=== PATIENT | female | born 1960 | race Caucasian/White ===

== ENCOUNTER 2022-01-06 14:02 | Outpatient (CLI) | payer MEDICAID, SELFPAY ==
--- NOTE | 2022-01-06 14:05 | CT_ITS ---
WS: [id number] LDCT LUNG CANCER SCREENING HISTORY: NICOTINE Dependence, cigarettes TECHNIQUE: Axial imaging performed from the apices to 1 cm below the costophrenic angles. Coronal and sagittal reformats are submitted with axial MIP series. All CT scans at [facility] use at least one of these dose optimization techniques: automated exposure control; mA and/or kV adjustment per patient size (includes targeted exams where dose is matched to clinical indication); or iterativ e reconstruction. DLP: 87.90 mGy.cm DIvol: Mean CTDIvol: 1.60 (mGy) COMPARISON: None available. Diagnostic quality: Satisfactory Lung Nodules: Numerous bilateral calcified granulomata. There is a single 7 mm pleural nodule in the posterior RIGHT lower lobe. Lungs: Mild pulmonary hyperinflation. No endobronchial lesion. Heart: Mild enlargement of the heart. Increased intra-atrial fat. May be a small lipoma. Other findings: Extensive calcified lymph nodes in the sravan and paratracheal region. Atherosclerosis aorta. Mild enlargement of the pulmonary artery. Hepatic steatosis. CT/CT lung screening [id number] IMPRESSION: LUNG-RADS: 4A-Probably Suspicious FOLLOW UP: 3 Month LDCT OTHER FINDINGS (S MODIFIER): None.
== END 2022-01-06 14:03 | disposition home or self-care (01) ==
LOC: RAD 14:04
PROVIDERS: Visit Provider Registered Nurse
DX: Z13.83 Encounter for screening for respiratory disorder NEC (principal)
CPT/HCPCS: 71271

== ENCOUNTER → 2022-03-06 12:55 | Outpatient (BNVA) | payer MEDICAID, SELFPAY | PROVIDERS: Visit Provider Internal Medicine Cardiovascular Disease | DX: I51.7 Cardiomegaly (principal); I25.10 Atherosclerotic heart disease of native coronary artery without angina pectoris; I25.84 Coronary atherosclerosis due to calcified coronary lesion; F17.210 Nicotine dependence, cigarettes, uncomplicated; Z86.73 Personal history of transient ischemic attack (TIA), and cerebral infarction without residual deficits | CPT/HCPCS: 93005; 99204; 99205 ==

== ENCOUNTER 2022-05-08 12:06 | Outpatient (CLI) | payer MEDICAID, SELFPAY ==
--- NOTE | 2022-05-08 13:45 | USCV_ITS ---
Jihan Dominguez Age: 62 Gender: F : 1960 Exam Date: 05/08/2022 13:47 Ordering Phys: Eda Fitzgerald MD ([email or web address]) Technologist: RONAN [place] [facility] [place]: SOB, cardiomegaly BP: 158 / 88 HR: 77 Rhythm: Sinus Technical Quality: difficult MEASUREMENTS (Male / Female) Normal Values 2D ECHO LV Diastolic Diameter PLAX 3.9 cm 4.2 - 5.9 / 3.9 - 5.3 cm LV Systolic Diameter PLAX 2.5 cm IVS Diastolic Thickness 1.4 cm 0.6 - 1.0 / 0.6 - 0.9 cm IVS Systolic Thickness 1.8 cm LVPW Diastolic Thickness 1.2 cm 0.6 - 1.0 / 0.6 - 0.9 cm LVPW Systolic Thickness 1.6 cm LVOT Diameter 2.0 cm LV Ejection Fraction 2D Teich 67.1 % LV Ejection Fraction MOD 2C 60.2 % LV Ejection Fraction 2C AL 60.9 % LA Diameter 3.4 cm RA Width 2.8 cm RA Height 4.0 cm Aorta at Sinotubular Diameter 2.4 cm M-MODE MV E Point Septal Separation 0.6 cm DOPPLER AV Peak Velocity 103.0 cm/s LVOT Peak Velocity 73.0 cm/s AV Area Cont Eq vti 2.5 cm squared AV Area Cont Eq pk 2.3 cm squared MV Peak Velocity 126.0 cm/s MV Area PHT 3.3 cm squared Mitral E to A Ratio 1.0 MV E' Velocity 61.0 cm/s Mitral E to MV E' Ratio 12.0 Mitral E to LV E' Lateral Ratio 16.2 Mitral E to LV E' Septal Ratio 9.5 TR Peak Velocity 257.8 cm/s TR Peak Gradient 26.6 mmHg Right Atrial Pressure 8.0 mmHg Pulmonary Artery Systolic Pressu 34.6 mmHg PV Peak Velocity 100.0 cm/s FINDINGS Left Ventricle Normal left ventricular size and systolic function, EF 66 %. Mild left ventricular hypertrophy. No regional wall motion abnormalities. Right Ventricle The right ventricle is normal in size and function. Right Atrium The right atrium is normal in size. Left Atrium Mildly increased left atrial size. Mitral Valve Mild mitral annular calcification. Mild mitral valve regurgitation. Aortic Valve Thickened aortic valve. Trace aortic valve regurgitation. Tricuspid Valve Mild tricuspid valve regurgitation. Pulmonic Valve Pulmonic valve not well visualized. Pericardium Normal pericardium without effusion. Aorta Normal aortic annulus size. IVC Normal inferior vena cava. CONCLUSIONS Normal left ventricular size and systolic function, EF 66 %. Mild left ventricular hypertrophy. No regional wall motion abnormalities. Mild mitral annular calcification. Mild mitral valve regurgitation. Mildly increased left atrial size. Thickened aortic valve. Trace aortic valve regurgitation. Mild tricuspid valve regurgitation. Estimated pulmonary artery peak systolic pressure 35 mmHg There is no pericardial effusion. There are no intracardiac masses. No similar previous studies are available for comparison Dr Eda Fitzgerald MD [facility] (Electronically Signed) Final Date: 09 May 2022 11:25 S
== END 2022-05-08 12:07 | disposition home or self-care (01) ==
LOC: RAD 12:07
PROVIDERS: PCP Family Medicine; Visit Provider Internal Medicine Cardiovascular Disease
DX: R06.02 Shortness of breath (principal); I08.3 Combined rheumatic disorders of mitral, aortic and tricuspid valves
CPT/HCPCS: 93306

== ENCOUNTER 2022-06-09 07:16 | Outpatient (CLI) | payer MEDICAID, SELFPAY ==
[2022-06-09 07:46] VITALS: BMI 38.1
--- NOTE | 2022-06-09 07:48 | NMCV_ITS ---
NM crystal perf SPECT r/s* [id number] Jihan Dominguez Age: 62 Gender: F : 1960 Exam Date: 06/09/2022 07:48 Ordering Phys: Eda Fitzgerald MD ([email or web address]) Technologist: BETH Leos Exam Location: [facility] Indications: CORONARY ANGIOPLASTY STATUS STRESS TEST Please see separate stress test report in [facility] for full findings IMAGE PROTOCOL Rest/Stress 1 Exercise Day Radiopharmaceutical Dose (mCi) Administration Site Administered by Rest: Tc-99m 10.8 IV BETH Velasquez Sestamibi Stress:Tc-99m 32.6 IV BETH Velasquez Sestamibi Rest: 09-Jun-2022 60 Discovery 630 Stress: 09-Jun-2022 15 Discovery 630 Radiopharmaceutical was injected at 85 % maximum heart rate. Images obtained in supine and prone position. SPECT RESULTS Technical Quality: Excellent Raw Data Analysis: Normal Image Corrections: No attenuation or motion correction applied Summed Stress Score: 0 Summed Rest Score: 2 Summed Difference Score: 0 PERFUSION FINDINGS Small area of slightly decreased tracer uptake was noted in the apical anterior region, in the supine position. Fairly uniform myocardial tracer uptake was noted in the prone position. No S3 reversibility was noted. FUNCTIONAL RESULTS (calculated via Gated SPECT) Stress Image LV EF (%): 82 Stress EDV (mL):60 TID: 0.74 Stress ESV (mL):11 FUNCTIONAL FINDINGS: Segmental wall motion analysis revealing no gross wall motion abnormalities IMPRESSIONS 1. Myocardial perfusion imaging revealing small area of inconsistent defect in the apical anterior region, most likely represent attenuation artifact. 2. Normal LV ejection fraction of 83%. 3. Segmental wall motion analysis revealing no gross wall motion abnormalities. 4. Normal LV volume Low probability for coronary ischemia, based on the above findings Dr Eda Fitzgerald MD [facility] (Electronically Signed) Final Date: 09 June 2022 13:33 S
--- NOTE | 2022-06-09 07:48 | ECG_ITS ---
[facility] Test Date: 2022-06-09 Pat Name: Jihan Dominguez Department: Room: Gender: Female Manager Project Management: : 1960 Requested By: dEa Fitzgerald Order Number: [id number] Flaquita MD: Eda Fitzgerald M.D. Interpretive Statements NAME OF STUDY: EXERCISE SESTAMIBI STRESS TEST INDICATION: CHEST TIGHTNESS/SOB PROCEDURE: The baseline electrocardiogram showed normal sinus rhythm with poor R wave progression. Nonspecific T wave changes in the inferior leads.. At the baseline, the patient's blood pressure was 160/74 mm Hg with a heart rate of 90/min. The patient exercised for 4 minutes and 46 seconds on a standard Nelson protocol. Patient attained a maximum heart rate of 149 beats per minute(94% of the maximum predicted heart rate) with a blood pressure at the peak exercise of 195/91 mm Hg. The EKG at the peak exercise revealed no significant changes. Patient did not have any chest pain or any significant arrhythmis with the exercise Sestamibi was injected 1 minute prior to the peak exercise During the recovery phase, there were no new changes. Blood pressure at the end of the recovery phase was 167/79 mm Hg with a heart rate of 95 per minute. CONCLUSION: 1. No significant EKG changes with the treadmill exercise 2. No exercise-induced chest pain or cardiac arrhythmia 3. Impaired exercise tolerance, attained a maximum of 7.0 METs 4. Sestamibi/Sestamibi perfusion results pending; see separate report. Electronically Signed On 06-14-2022 17:18:52 CDT by Eda Fitzgerald M.D. [id number]
[2022-06-09 10:33] VITALS: BP 167/79; PULSE 96
== END 2022-06-09 07:17 | disposition home or self-care (01) ==
LOC: CDL 07:19
PROVIDERS: PCP Family Medicine; Visit Provider Internal Medicine Cardiovascular Disease
DX: R07.89 Other chest pain (principal); R06.02 Shortness of breath; Z98.61 Coronary angioplasty status; R94.39 Abnormal result of other cardiovascular function study
CPT/HCPCS: 78452; 93017; A9500

== ENCOUNTER → 2022-06-10 14:23 | Outpatient (BNVA) | payer MEDICAID, SELFPAY | PROVIDERS: PCP Family Medicine; Visit Provider Nurse Practitioner Family | DX: R07.89 Other chest pain (principal); I10 Essential (primary) hypertension; F17.200 Nicotine dependence, unspecified, uncomplicated | CPT/HCPCS: 99213 ==

== ENCOUNTER 2022-09-22 15:09 | Outpatient (CLI) | payer MEDICAID, SELFPAY ==
--- NOTE | 2022-09-22 15:35 | MM_ITS ---
WS: [id number] BILATERAL 3D TOMOSYNTHESIS DIGITAL SCREENING MAMMOGRAPHY WITH CAD CLINICAL INFORMATION: SCREENING HISTORY: Screening mammogram. No current complaints. COMPARISON: July 23, 2021 TECHNIQUE: Bilateral CC and MLO views. FINDINGS: Scattered fibroglandular densities bilaterally. No suspicious focal mass, asymmetry, calcifications, or architectural distortion. No evidence of malignancy. Incidental punctate calcifications. MM/[place] [id number] IMPRESSION: BI-RADS: 2-Benign FOLLOW UP: 1 Year Follow-up Recommend return to annual screening mammography.
== END 2022-09-22 15:10 | disposition home or self-care (01) ==
LOC: RAD 15:09
PROVIDERS: PCP Family Medicine; Visit Provider Registered Nurse
DX: Z12.31 Encounter for screening mammogram for malignant neoplasm of breast (principal)
CPT/HCPCS: 77063; 77067

== ENCOUNTER → 2022-11-25 10:58 | Outpatient (BNVA) | payer MEDICAID, SELFPAY | PROVIDERS: PCP Family Medicine; Visit Provider Internal Medicine Cardiovascular Disease | DX: R07.89 Other chest pain (principal); E78.5 Hyperlipidemia, unspecified; I25.10 Atherosclerotic heart disease of native coronary artery without angina pectoris; I25.84 Coronary atherosclerosis due to calcified coronary lesion; I11.9 Hypertensive heart disease without heart failure; Z87.891 Personal history of nicotine dependence | CPT/HCPCS: 99214 ==

== ENCOUNTER → 2024-04-20 14:15 | Outpatient (BNVA) | payer MEDICARE, MEDICAID, SELFPAY | PROVIDERS: PCP Family Medicine; Visit Provider Specialist | DX: M17.0 Bilateral primary osteoarthritis of knee (principal); R22.41 Localized swelling, mass and lump, right lower limb | CPT/HCPCS: 73560; 73565; 99204 ==

== ENCOUNTER 2024-05-26 07:35 | Outpatient (CLI) | payer MEDICARE, MEDICAID, SELFPAY ==
--- NOTE | 2024-05-26 07:38 | MR_ITS ---
WS: [id number] MRI RIGHT knee arthrogram. HISTORY: Chronic knee pain. Instability and joint effusion. Pre and post arthrogram imaging performed. Prearthrogram: Small suprapatellar joint effusion. Torn ACL. PCL is intact. Anterior horn of the medi al meniscus is partially extruded from the joint. Lateral menisci are normal. Lobulated cystic mass adjacent to the fibular head is probably a ganglion measuring 1.6 x 0.7 cm. Severe medial joint compartment narrowing with extensive loss of cartilage. Marrow edema and marginal osteophytes. Mild narrowing patellofemoral joint space. MCL is slightly displaced from the joint rosalva e by the extruded meniscus and osteophytes. There is a small loose body in the fluid posterior to the PCL. Loose body measures 3 mm. Extensive osteophytosis involving all 3 compartments. Post arthrogram: Osteophytic ridging around the femoral condyles and tibial plateau. Torn ACL. There does appear to be residual fibers of the ACL noted in the intercondylar notch. Majority of the ACL is low-lying upon the tibial plateau. Extensive chondromalacia along the medial femoral condyle and tib ial plateau. Lateral compartment and patellofemoral compartments cartilage is better preserved. MR/MR knee RT wo/w con [id number] IMPRESSION: 1. Torn ACL. 2. Small suprapatellar joint effusion. 3. Severe medial compartment joint space narrowing with loss of cartilage and s ubchondral cystic changes and osteophytosis. 4. Small loose body posterior to the PCL. 5. Lobulated cystic mass in the fibular head 1.6 x 0.7 cm. Probably a small ava glion. 6. Mild degenerative changes at the patellofemoral and lateral compartments.
--- NOTE | 2024-05-26 08:00 | IR_ITS ---
WS: [id number] RIGHT KNEE ARTHROGRAM (FLUOROSCOPY) RIGHT knee arthrogram was performed in fluoroscopy prior to MRI evaluation. HISTORY: mass of lower leg COMPARISON: None. FLUOROSCOPY TIME: 1min [id number] # of spot films: 3 Patient is allergic to lidocaine. Nesacaine was used instead. Procedure, risks and complications were explained to the patient. Complications include but not limit ed to bleeding, infection and contrast reaction. Current medications are reviewed. Skin is cleansed with ChloraPrep. Skin is anesthetized with Nesacaine. 22-gauge needle is inserted i nto the lateral patellofemoral joint. Approximately 40 cc of gadolinium mixture injected without comp lication. Patient will proceed to MRI evaluation immediately. No complications were encountered. Patient is instructed to watch for post procedure infection or ble eding. Patient is also instructed to contact the radiology department with any concerns. IR/[place] [id number] IMPRESSION: Uncomplicated RIGHT knee joint injection prior to MR arthrogram.
== END 2024-05-26 07:36 | disposition home or self-care (01) ==
LOC: RAD 07:36
PROVIDERS: PCP Family Medicine; Visit Provider Specialist
DX: M23.611 Other spontaneous disruption of anterior cruciate ligament of right knee (principal); M25.861 Other specified joint disorders, right knee; M25.761 Osteophyte, right knee; R22.41 Localized swelling, mass and lump, right lower limb; M23.41 Loose body in knee, right knee
CPT/HCPCS: 27369; 73723; 77002

== ENCOUNTER 2025-07-18 10:52 | Outpatient (CLI) | payer MEDICARE, MEDICAID, SELFPAY ==
--- NOTE | 2025-07-18 10:59 | MM_ITS ---
WS: [id number] DIAGNOSTIC BILATERAL DIGITAL BREAST TOMOSYNTHESIS MAMMOGRAPHY WITH CAD RIGHT breast ultrasound, limited HISTORY: LUMP IN CENTRAL PORTION OF R BREAST/NIPPLE DISCHARGE COMPARISON: 01/22/2024, 09/22/2022 TECHNIQUE: Bilateral craniocaudad, mediolateral oblique, and mediolateral views are submitted with tomosynthesis and SM. Spot compression RIGHT MLO and CC. Computer aided detection utilized. Breast composition: There are scattered areas of fibroglandular density. Palpable area along the inferior medial RIGHT breast is marked with a triangular marker. There is no underlying mass identified. There are a few benign calcifications within each breast. No architectural distortion. RIGHT breast ultrasound, limited. Ultrasound is directed to the palpable area which is at 5:00, 3 cm from the nipple. There is no mass or distortion. No soft tissue thickening. MM/MM diag BI tomosynthesis [id number] IMPRESSION: BI-RADS: 2 - Benign. FOLLOW UP: 1 Year Follow-up No mammographic or ultrasound abnormality in the RIGHT breast at 5:00.
== END 2025-07-18 10:53 | disposition home or self-care (01) ==
PROVIDERS: PCP Family Medicine
DX: N63.41 Unspecified lump in right breast, subareolar (principal); N64.52 Nipple discharge; R92.323 Mammographic fibroglandular density, bilateral breasts; R92.1 Mammographic calcification found on diagnostic imaging of breast
CPT/HCPCS: 76642; 77062; G0279